=== PATIENT | male | born 1955 | race African-American/Black ===

== ENCOUNTER 2017-11-12 09:00 | Day surgery (SDC) | payer BC, OTHER ==
[2017-11-08 14:41] VITALS: BMI 29.5
[2017-11-12] MEDS ORDERED: MIDAZOLAM HCL 2 MG/2 ML SINGLE DOSE VIAL ONE (13:31)
[2017-11-12] MEDS ORDERED: PROPOFOL 20 ML ONE ×4 (13:31)
[2017-11-12] MEDS ORDERED: DESFLURANE GAS 240 ML BOTTLE IH ONE (13:57)
[2017-11-12] MEDS ORDERED: oxyCODONE HCL 5 MG TABLET PO PRN (13:59)
[2017-11-12] MEDS ORDERED: ONDANSETRON 4 MG/2 ML VIAL IVPUSH PRN (13:59)
[2017-11-12] MEDS ORDERED: PROMETHAZINE HCL 25 MG/1 ML VIAL IVPUSH PRN (13:59)
[2017-11-12] MEDS ORDERED: LACTATED RINGERS SOLUTION 1,000 ML IV SCH (14:00)
--- NOTE | 2017-11-12 14:44 | OP ---
Operative Note - Note: Operative Date: 11/12/17 Pre-Operative Diagnosis: bladder tumor Operation: cystoscopy Findings: no evidence of bladder tumor Post-Operative Diagnosis: Same as Pre-op Surgeon: Pradip Agrawal Anesthesia: General
[2017-11-12 15:06] VITALS: TEMP 97.8
[2017-11-12 16:17] VITALS: BP 136/85; PULSE 54
== END 2017-11-12 16:00 | disposition home or self-care (01) ==
LOC: JASU-SURG 09:00
PROVIDERS: ATTEND Urology
PROC: 0TJB8ZZ Inspection of Bladder, Via Natural or Artificial Opening Endoscopic (ICD-10-PCS; principal; 2017-11-12 11:00)
DX: D49.4 Neoplasm of unspecified behavior of bladder (principal)
CPT/HCPCS: 94760